=== PATIENT | male | born 1955 | race Caucasian/White ===

== ENCOUNTER 2020-02-05 00:09 | Inpatient (IN) | payer BC, OTHER ==
[~2020-02-05] VITALS: Ht 180.3 cm; Wt 102.8 kg
[2020-02-05 02:05] LABS: Basophils # (auto) 0.1 10 ^3/uL (0-0.2); Basophils % (auto) 0.8 % (0.0-2.0); Eosinophils # (auto) 0.2 10 ^3/uL (0-0.8); Eosinophils % (auto) 1.7 % (0.0-7.0); Hematocrit 48.9 % (41.0-53.0); Hemoglobin 16.4 g/dL (13.5-17.5); Lymphocytes # (auto) 1.5 10 ^3/uL (0.4-5.4); Lymphocytes % (auto) 12.6 % (10.0-50.0); Mean Corpuscular Hemoglobin 30.1 pg (28.0-32.0); Mean Corpuscular Hgb Conc. 33.5 g/dL (32.0-36.0); Mean Corpuscular Volume 89.9 fL (80.0-100.0); Monocytes # (auto) 0.7 10 ^3/uL (0-1.3); Monocytes % (auto) 5.5 % (0.0-12.0); Neutrophils # (auto) 9.4 10 ^3/uL (1.6-8.6); Neutrophils % (auto) 79.4 % (37.0-80.0); Nucleated Red Blood Cells % 0.1 %; Platelet Count (auto) 265 10^3/uL (140-450); Red Blood Cells 5.44 10^6/uL (4.5-5.90); Red Cell Distribution Width 16.6 % (11.8-14.3); White Blood Cell 11.9 10^3/uL (4.4-10.8)
[2020-02-05 02:22] LABS: Albumin 3.6 g/dL (3.4-5.0); Calcium 8.3 mg/dL (8.5-10.1); Potassium 4.3 mmol/L (3.5-5.1)
[2020-02-05 02:28] LABS: Bilirubin, Total 0.6 mg/dL (0.2-1.0); Total Protein 6.9 g/dL (6.4-8.2)
[2020-02-05] MEDS ORDERED: INSUINJ37 SC (07:03)
[2020-02-05] MEDS ORDERED: TEMA15CA91 PO (07:03)
[2020-02-05] MEDS ORDERED: HYDR-4902 (07:03)
[2020-02-05] MEDS ORDERED: ALLO300T2 PO (07:03)
[2020-02-05] MEDS ORDERED: GLIP5TAB12 PO (07:03)
[2020-02-05] MEDS ORDERED: APIX5TAB PO (07:03)
[2020-02-05] MEDS ORDERED: ROSU1TAB14 PO (07:03)
[2020-02-05] MEDS ORDERED: INDO50CA82 PO (07:03)
[2020-02-05] MEDS ORDERED: CARV6.2551 PO (07:03)
[2020-02-05] MEDS ORDERED: SITA50TA28 PO (07:03)
[2020-02-05] MEDS ORDERED: SACU1TAB PO (07:03)
[2020-02-05] MEDS ORDERED: NITROGLYCERIN 0.4 MG SL TAB SL PRN (14:00)
[2020-02-05] MEDS ORDERED: HYDROcodone-ACET 5/325MG TAB PO ONE (14:00)
[2020-02-05 15:29] LABS: Albumin 3.7 g/dL (3.4-5.0); Calcium 8.6 mg/dL (8.5-10.1); Potassium 4.9 mmol/L (3.5-5.1)
[2020-02-05 15:35] LABS: BUN/Creatinine Ratio 14.2; Total Protein 7.3 g/dL (6.4-8.2)
[2020-02-05 15:51] LABS: Basophils # (auto) 0.1 10 ^3/uL (0-0.2); Eosinophils # (auto) 0.1 10 ^3/uL (0-0.8); Hematocrit 52.5 % (41.0-53.0); Hemoglobin 17.2 g/dL (13.5-17.5); Lymphocytes # (auto) 1.6 10 ^3/uL (0.4-5.4); Lymphocytes % (auto) 19.8 % (10.0-50.0); Mean Corpuscular Hemoglobin 29.9 pg (28.0-32.0); Mean Corpuscular Hgb Conc. 32.7 g/dL (32.0-36.0); Mean Corpuscular Volume 91.3 fL (80.0-100.0); Monocytes # (auto) 0.5 10 ^3/uL (0-1.3); Monocytes % (auto) 5.9 % (0.0-12.0); Neutrophils % (auto) 72.3 % (37.0-80.0); Nucleated Red Blood Cells % 0.3 %; Platelet Count (auto) 271 10^3/uL (140-450); Red Blood Cells 5.75 10^6/uL (4.5-5.90); Red Cell Distribution Width 16.5 % (11.8-14.3); White Blood Cell 8.3 10^3/uL (4.4-10.8)
[2020-02-05] MEDS ORDERED: CHOL20009 PO (16:27)
[2020-02-05] MEDS ORDERED: POM PO (16:27)
[2020-02-05] MEDS ORDERED: ALBUAER3 IN (16:31)
[2020-02-05 17:00] VITALS: BP 122/86
[2020-02-05 21:57] VITALS: BP 115/77
[2020-02-05] MEDS ORDERED: ATORVASTATIN 20 MG TAB PO SCH (22:00)
[2020-02-05] MEDS ORDERED: INSULIN LANTUS (GLARGINE) 1 /0.01ml (100units/ml) SC SCH (22:00)
[2020-02-05] MEDS ORDERED: CARVEDILOL 3.125 MG TAB PO SCH (22:00)
[2020-02-05] MEDS: APIXABAN 5 MG TAB PO SCH (22:14)
[2020-02-06 05:00] VITALS: BP 105/56
[2020-02-06 05:31] LABS: Basophils # (auto) 0.1 10 ^3/uL (0-0.2); Eosinophils # (auto) 0.1 10 ^3/uL (0-0.8); Eosinophils % (auto) 1.4 % (0.0-7.0); Hematocrit 51.1 % (41.0-53.0); Hemoglobin 16.9 g/dL (13.5-17.5); Lymphocytes # (auto) 1.9 10 ^3/uL (0.4-5.4); Lymphocytes % (auto) 20.4 % (10.0-50.0); Mean Corpuscular Volume 90.8 fL (80.0-100.0); Monocytes # (auto) 0.7 10 ^3/uL (0-1.3); Monocytes % (auto) 7.6 % (0.0-12.0); Neutrophils # (auto) 6.4 10 ^3/uL (1.6-8.6); Neutrophils % (auto) 69.6 % (37.0-80.0); Nucleated Red Blood Cells % 0.1 %; Platelet Count (auto) 264 10^3/uL (140-450); Red Blood Cells 5.62 10^6/uL (4.5-5.90); Red Cell Distribution Width 16.7 % (11.8-14.3); White Blood Cell 9.3 10^3/uL (4.4-10.8)
[2020-02-06 06:11] LABS: Calcium 8.7 mg/dL (8.5-10.1); Potassium 4.2 mmol/L (3.5-5.1)
[2020-02-06 06:15] LABS: BUN/Creatinine Ratio 18.8
[2020-02-06 08:57] VITALS: BP 104/74
[2020-02-06] MEDS ORDERED: ALLOPURINOL 300 MG TAB PO SCH (10:00)
[2020-02-06] MEDS ORDERED: TEMAZEPAM 15 MG CAP PO SCH (10:00)
[2020-02-06] MEDS ORDERED: INDOMETHACIN 25 MG CAP PO SCH (10:00)
[2020-02-06] MEDS ORDERED: SACUBITRIL-VALSARTAN 24mg/26mg TAB PO SCH (10:00)
[2020-02-06] MEDS ORDERED: PANTOPRAZOLE 40 MG/10 ML VIAL INJ IV SCH (10:00)
[2020-02-06] MEDS: APIXABAN 5 MG TAB PO SCH (10:00)
[2020-02-06] MEDS ORDERED: glipiZIDE 5 MG TAB PO SCH (10:00)
[2020-02-06] MEDS ORDERED: CAR3125T PO (12:31)
[2020-02-06 13:00] VITALS: BP 138/94
[2020-02-06 14:20] VITALS: BP 138/94
[2020-02-06 16:30] VITALS: BP 132/83
[2020-02-06] MEDS ORDERED: CARVEDILOL 3.125 MG TAB PO SCH (22:00)
== END 2020-02-06 16:10 | disposition home or self-care (01) | DRG 311 ==
LOC: EDBD 00:09 → ER 00:09 → TELE 00:10 → TELE-CENTR 15:51
PROVIDERS: ADMIT Internal Medicine; ATTEND Internal Medicine
DX: I24.8 Other forms of acute ischemic heart disease (principal); I50.22 Chronic systolic (congestive) heart failure; I13.0 Hypertensive heart and chronic kidney disease with heart failure and stage 1 through stage 4 chronic kidney disease, or unspecified chronic kidney disease; I42.9 Cardiomyopathy, unspecified; I48.91 Unspecified atrial fibrillation; N18.30 Chronic kidney disease, stage 3 unspecified; E11.22 Type 2 diabetes mellitus with diabetic chronic kidney disease; I25.10 Atherosclerotic heart disease of native coronary artery without angina pectoris; J44.9 Chronic obstructive pulmonary disease, unspecified; Z79.01 Long term (current) use of anticoagulants; I25.2 Old myocardial infarction; Z87.891 Personal history of nicotine dependence; Z95.1 Presence of aortocoronary bypass graft
CPT/HCPCS: 36415; 71045; 80048; 80053; 82962; 84484; 85025; 87081; 93005; C9113; G0378; J1815

== ENCOUNTER 2023-10-23 10:04 | Inpatient (IN) | payer BC ==
[~2023-10-23] VITALS: Ht 180.3 cm; Wt 102.2 kg
[2023-10-23] VITALS (9 sets, daily range): BP systolic 82–116; BP diastolic 55–67; PULSE 60–65; RESP 12–20; TEMP 97.7–98; O2SAT 90–98
[2023-10-23] MEDS: IODIXANOL 320MG/ML 100ML BTL IV ONE ×4 (07:53→14:50)
[2023-10-23] MEDS: HEPARIN IN NS 1000Units/500mL 1,500 ML ONE (07:53)
[2023-10-23] MEDS: LIDOCAINE 2%HCL (LOCAL ANESTH.) INJ 20ML MDV ONE ×2 (09:01→14:16)
[~2023-10-23 10:04] MED LIST: ALLO300T2 PO; APIX5TAB PO; CARV6.2551 PO; CLON0.5T3 PO; DAPA1TAB4 PO; FURO40TA4 PO; HYDR50TA47 PO; INSUINJ37 SC; ISOS10TA5 PO; ROSU20TA56 PO; SACU1TAB7 PO; SENN-257 PO; SITA50TA28 PO
[2023-10-23] MEDS: GLYCOPYRROLATE 0.2 MG/ML 1ML VIAL ONE (14:15)
[2023-10-23] MEDS: ANGIOMAX 250 MG VIAL IV ONE ×2 (14:35→15:17)
[2023-10-23] MEDS: SODIUM CHL 0.9% 50 ML ONE ×2 (14:35→15:17)
[2023-10-23] MEDS: PHENYLEPHRINE HCL 10 MG/ML VL ONE (14:46)
[2023-10-23] MEDS: hydrALAZINE HCL 20 MG/ML VL ONE (14:50)
[2023-10-23] MEDS ORDERED: NITROGLYCERIN 0.4 MG SL TAB SL PRN (15:00)
[2023-10-23] MEDS ORDERED: MORPHINE SULFATE INJ 2 MG/ml SYRG IV PRN (15:00)
[2023-10-23] MEDS: CLOPIDOGREL BISULFATE 75 MG TAB ONE ×2 (15:31→16:15)
[2023-10-23] MEDS: MIDAZOLAM HCL 2MG/2ML 2ml VIAL (1mg/ml) ONE (15:40)
[2023-10-23] MEDS: fentaNYL CITRATE 100 MCG/2 ML VL ONE (15:40)
[2023-10-23] MEDS: SODIUM CHLORIDE 0.9% 1,000 ML IV SCH (16:15)
[2023-10-24 01:00] VITALS: BP 105/53; PULSE 64; RESP 20; TEMP 97.7; O2SAT 92
[2023-10-24 08:00] VITALS: PULSE 60
[2023-10-24] MEDS: CLOPIDOGREL BISULFATE 75 MG TAB PO SCH (08:21)
[2023-10-24] MEDS: ASPirin 81 mg TAB PO SCH (08:21)
[2023-10-24 09:00] VITALS: BP 108/59; PULSE 60; RESP 18; TEMP 98.4; O2SAT 96
[2023-10-24] MEDS ORDERED: ASPI81TA28 PO (11:31)
[2023-10-24] MEDS ORDERED: CLOP75TA70 PO (11:31)
[2023-10-24 12:25] VITALS: TEMP 36.9
[2023-10-24 13:00] VITALS: BP 138/73; PULSE 60; RESP 19; TEMP 97.9; O2SAT 98
== END 2023-10-24 15:03 | disposition home or self-care (01) | DRG 35 ==
LOC: CATH 10:04 → TELE 15:00 → TELE-EAST 18:15
PROVIDERS: ADMIT Internal Medicine; ATTEND Internal Medicine
PROC: 037K3DZ Dilation of Right Internal Carotid Artery with Intraluminal Device, Percutaneous Approach (ICD-10-PCS; principal; 2023-10-23)
PROC: 047C3DZ Dilation of Right Common Iliac Artery with Intraluminal Device, Percutaneous Approach (ICD-10-PCS; 2023-10-23)
DX: I65.21 Occlusion and stenosis of right carotid artery (principal); I48.20 Chronic atrial fibrillation, unspecified; I70.298 Other atherosclerosis of native arteries of extremities, other extremity; I10 Essential (primary) hypertension; Z79.02 Long term (current) use of antithrombotics/antiplatelets; Z83.3 Family history of diabetes mellitus; Z82.49 Family history of ischemic heart disease and other diseases of the circulatory system; Z79.82 Long term (current) use of aspirin
CPT/HCPCS: 36223; 37221; 99152; G0378; J2250; Q9967

== ENCOUNTER 2023-11-20 08:18 | Day surgery (SDC) | payer BC ==
[~2023-11-20] VITALS: Ht 180.3 cm; Wt 102.5 kg
[~2023-11-20 08:18] MED LIST changes: +ALLO100T PO; +ASPI81TA28 PO; +CLOP75TA70 PO; -SENN-257 PO; +SENN8.6T83 PO
[2023-11-20] MEDS ORDERED: IODIXANOL 320MG/ML 100ML BTL IV ONE ×2 (08:39→09:35)
[2023-11-20] MEDS ORDERED: HEPARIN IN NS 1000Units/500mL 1,500 ML ONE (08:39)
[2023-11-20] MEDS ORDERED: SODIUM CHL 0.9% 0 ML ONE (09:29)
[2023-11-20] MEDS ORDERED: ANGIOMAX 250 MG VIAL IV ONE (09:29)
[2023-11-20] MEDS ORDERED: GLYCOPYRROLATE 0.2 MG/ML 1ML VIAL ONE (09:29)
[2023-11-20] MEDS ORDERED: LIDOCAINE 2%HCL (LOCAL ANESTH.) INJ 20ML MDV ONE (09:34)
== END 2023-11-20 12:32 | disposition home or self-care (01) ==
LOC: CATH 08:18
PROVIDERS: ATTEND Internal Medicine
DX: I65.22 Occlusion and stenosis of left carotid artery (principal); I11.0 Hypertensive heart disease with heart failure; I50.9 Heart failure, unspecified; I73.9 Peripheral vascular disease, unspecified; J44.9 Chronic obstructive pulmonary disease, unspecified; Z95.820 Peripheral vascular angioplasty status with implants and grafts; Z95.5 Presence of coronary angioplasty implant and graft; Z98.890 Other specified postprocedural states; Z82.49 Family history of ischemic heart disease and other diseases of the circulatory system; Z83.3 Family history of diabetes mellitus
CPT/HCPCS: 36222; C1769; C1894; J1644; J7030; Q9967; 99152